=== PATIENT | female | born 1990 | race Asian ===

== ENCOUNTER 2024-01-02 10:10 | Outpatient (AMB) | payer OTHER, SELFPAY ==
--- NOTE | 2024-01-02 10:25 | A.OFFPC_ITS ---
Vital Signs 01/02/24 10:30 Height 5 ft 2 in Weight 122 lb BMI 22.3 BP 120/72 Blood Pressure Location Lt brachial Position Sitting Pulse 75 Pulse Source Pulse Oximeter Pulse Oximetry (%) 100 Oxygen Delivery Method Room Air Intake Visit Reasons: New patient-Requesting physical Parimutuel Ticket Seller Required: No Combat Systems Engineer: Present Accompanied by: Spouse Allergies No Known Allergies Allergy (Verified 01/02/24 11:06) Medication List - Last Reconciled 01/02/24 by Blas Leger MD cabergoline 0.5 mg PO 2XW Tobacco use date assessed: 01/02/24 Dental Screening Dental Screen Date: 01/02/24 Did you have a dental visit in the last 12 months?: No Did you have a dental problem in the last 6 months where you did not have access to dental care?: No Was dental information given to patient?: Patient has dentist HPI New patient-Requesting physical HPI Details Patient comes in today for her annual physical examination and to establish care - is a new patient to the practice States that she feels okay She denies any headaches or dizziness Denies any chest pains, no SOB No nausea/vomiting, no abdominal pain No change in bowel habits noted She denies any acute urinary symptoms Relates that she has a Hx of hyperprolactinemia and recalls having a brain MRI done in [place] recently that came out normal [facility] Medical History (Updated 05/27/24 @ 02:47 by Blas Leger MD) Hyperprolactinemia Surgical History (Updated 01/02/24 @ 11:09 by Blas Leger MD) No pertinent past surgical history Social History Housing: House Patient Tobacco Use Status: Never used Tobacco service: No Current occupational status: employed Cognitive needs: No Hearing needs: No Vision needs: No Questionnaire PHQ-9 Over the last 2 weeks, how often have you been bothered by any of the following problems? 1. Little interest or pleasure in doing things: not at all 2. Feeling down, depressed, or hopeless: not at all 3. Trouble falling or staying asleep, or sleeping too much: not at all 4. Feeling tired or having little energy: not at all 5. Poor appetite or overeating: not at all 6. Feeling bad about yourself - or that you are a failure or have let yourself or your family down: not at all 7. Trouble concentrating on things, such as reading the newspaper or watching television: not at all 8. Moving or speaking so slowly that other people could have noticed. Or the opposite - being so fidgety or restless that you have been moving around a lot more than usual: not at all 9. Thoughts that you would be better off or of hurting yourself in some way: not at all Total score: 0 Depression Screening Interpretation: Negative Depression Screening Done: Yes 19191 - PHQ-9 Billing: Yes Source: Developed by Drs. Dwaine Crews, Kelly Barker, Jorge Rogers and colleagues, with an educational torrey from [employer]. Thrive Questionnaire Date Thrive assessed: 01/02/24 I am a: Patient What is your living situation today?: I have a steady place to live Within the past 12 months, did the food you bought not last and you didn't have the money to get more?: Never true Within the past 12 months, did you worry whether your food would run out before you got money to buy more?: Never true Do you have trouble paying for medicines?: No Do you have trouble getting transportation to medical appointments?: No Do you have trouble paying your heating and electricity bill?: No Do you have trouble taking care of your child, family member or friend?: No Do you have trouble with day-to-day activities such as bathing, preparing meals, shopping, managing finances, etc.?: No Are you currently unemployed and looking for a job?: No Are you interested in more education?: No Please select the resources that you would like help with: None Currently or been in a relationship where the following occur: no concerns reported THRIVE Score: 0 AUDIT C Alcohol Use Questionnaire (AUDIT-C) 1. How often do you have a drink containing alcohol?: Never 3. How often do you have six or more drinks on one occasion?: Never Total Score: 0 Score Reviewed/Action Taken: Yes NATHALIA-7 AMB Questionnaire NATHALIA-7 Date NATHALIA - 7 assessed: 01/02/24 Feeling nervous, anxious, or on edge: 0 = Not at all Not being able to stop or control worryin = Not at all Worrying too much about different things: 0 = Not at all Trouble relaxin = Not at all Being so restless that it is hard to sit still: 0 = Not at all Becoming easily annoyed or irritable: 0 = Not at all Feeling afraid as if something awful might happen: 0 = Not at all Total NATHALIA-7 score (0-4 normal; 5-9 mild; 10-14 moderate; 15-21 severe): 0 Source: Developed by Drs. Dwaine Crews, Kelly Barker, Jorge Rogers and colleagues, with an educational torrey from [employer]. Review of Systems Const Denies chills, Denies fatigue, Denies fever(s), Denies headache(s) and Denies malaise Eyes Denies blurry vision, Denies change in vision, Denies irritation and Denies itchy eyes ENT Denies dysphagia, Denies dizziness, Denies otalgia, Denies headache(s), Denies nasal congestion, Denies neck pain, Denies odynophagia, Denies sinus pain and Denies sore throat Card Denies chest pain, Denies rapid heart rate, Denies irregular heart rhythm, Denies palpitations and Denies dyspnea Resp Denies chest congestion, Denies cough, Denies dyspnea and Denies wheezing GI Denies abdominal pain, Denies bloating, Denies constipation, Denies dysphagia, Denies heartburn, Denies diarrhea, Denies nausea, Denies odynophagia and Denies vomiting Denies hematuria, Denies urinary frequency, Denies dysuria, Denies urinary incontinence and Denies urinary urgency Musc Denies back pain, Denies arthralgias, Denies joint swelling, Denies muscle weakness and Denies neck pain Skin/Breast Denies breast pain, Denies breast mass, Denies change in pigmentation, Denies lesions, Denies rash and Denies unusual bruising Neuro Denies dizziness, Denies headache(s) and Denies paresthesias Psych Denies anxiety and Denies depression Endo Denies fatigue and Denies palpitations Catracho/Lymph Denies easy bruising Aller/Immun Denies itchy eyes and Denies wheezing Physical exam (Primary Care) Vital Signs: Last Vital Signs Pulse 75 01/02/24 10:30 BP 120/72 01/02/24 10:30 Pulse Ox 100 04/23/24 10:30 Oxygen Delivery Method Room Air 01/02/24 10:30 BMI result Body Mass Index 22.3 Tobacco/Smoking Status: Tobacco use Status Tobacco use date assessed 01/02/24 01/02/24 10:26 Patient Tobacco Use Status Never used Tobacco 01/02/24 10:33 PHQ-9: PHQ-9 Score PHQ-9: Total score 0 01/02/24 11:10 Depression Screening Interpretation: Negative Thrive Assessment: Date of Thrive Assessment Date Thrive assessed 01/02/24 01/02/24 10:26 Currently or been in a relationship where the following occur: no concerns reported Const General: no acute distress, alert and awake Orientation/consciousness: patient oriented x3 HENMT Head: Yes normocephalic and Yes atraumatic Ears: external ears normal, TM's normal bilaterally and EAC's normal General nose exam: No nasal discharge present Face and sinus: Yes normal facial exam and Yes sinuses nontender Teeth and gingiva: dentition normal Throat: Yes posterior oropharynx normal and Yes tonsils normal (no TP congestion) Eyes Eyelids: Yes eyelids normal Conjunctivae: conjunctivae normal Pupils: Equal, round and reactive pupils present EOM: EOMs intact bilaterally Neck Neck: Yes no lymphadenopathy and Yes supple Thyroid: Thyroid normal Resp Auscultation: clear to auscultation bilaterally, no rales and no wheezes Cardio Rate: regular rate Rhythm: regular rhythm Heart sounds: no murmurs GI Palpation (GI): Soft to palpation, nontender and No hepatosplenomegaly present Auscultation: normal bowel sounds General: Yes no CVA tenderness Back/Spine/Pelvis Back: no CVA tenderness Thoracic/Lumbar Spine: thoracic and lumbar spine normal to inspection Skin Lesions: no lesions Rashes: no rashes Neuro General: patient oriented x3, moves all extremities, no focal motor deficits and CN's II-XI intact bilaterally Cranial nerves: Yes Equal, round and reactive pupils present Cognition (Neuro): normal cognition Gait exam (Neuro): Normal gait present Extrem General: Yes no clubbing, cyanosis or edema Assessment and Plan Assessment & Plan (1) Annual physical exam: Code(s): Z00.00 - Encounter for general adult medical examination without abnormal findings Plan: Check labs - have advised patient that we will reach out to her if any of her routine labs come back with abnormal or unexpected results She has been going to [place] for IVF Tx and she is likely also seeing gynecology there for her routine screenings and exam (2) Hyperprolactinemia: Code(s): E22.1 - Hyperprolactinemia Plan: This was apparently noticed when she was worked up in [place] as she has been going there for IVF Tx States that her work ups have all been reportedly negative so far Relates that she had a brain MRI done in [place] recently that came out normal Plan To return in 1 year for her next annual physical examination Orders: Orders Complete Blood Count Auto Diff 01/02/24 D64.9 - Anemia, unspecified, Z00.00 - Encounter for general adult medical examination without abnormal findings TSH reflex Free T4 01/02/24 E78.00 - Pure hypercholesterolemia, unspecified, Z00.00 - Encounter for general adult medical examination without abnormal findings Comprehensive [place]. Panel Fast 01/02/24 E78.00 - Pure hypercholesterolemia, unspecified, Z00.00 - Encounter for general adult medical examination without abnormal findings Lipid Panel 01/02/24 E78.00 - Pure hypercholesterolemia, unspecified, Z00.00 - Encounter for general adult medical examination without abnormal findings UA CC w/rflx Micro + Cult 01/02/24 R30.0 - Dysuria, Z00.00 - Encounter for general adult medical examination without abnormal findings Vitamin D 25-OH Total 01/02/24 E55.9 - Vitamin D deficiency, unspecified, Z00.00 - Encounter for general adult medical examination without abnormal findings Coding Level of Care Code New Pt Prev Care 18-39yr([id number] Diagnoses Annual physical exam Z00.00 Hyperprolactinemia E22.1
[2024-01-02 10:30] VITALS: BP 120/72; PULSE 75; O2SAT 100; BMI 22.3
== END 2024-01-02 11:20 | disposition home or self-care (01) ==
PROVIDERS: PCP Internal Medicine; Visit Provider Internal Medicine
DX: Z00.00 Encounter for general adult medical examination without abnormal findings (principal); E22.1 Hyperprolactinemia
CPT/HCPCS: 99499

== ENCOUNTER 2024-01-02 11:30 | Outpatient (REF) | payer OTHER, SELFPAY ==
[2024-01-02 11:59] LABS: MANUAL DIFF FLAG NO
[2024-01-02 12:45] LABS: Basophils Absolute Auto 0.1 X10*3/uL (0.0-0.2); Basophils Percent Auto 0.8 % (0-2); Eosinophils Absolute Auto 0.1 X10*3/uL (0.0-0.4); Eosinophils Percent Auto 1.3 % (0-4); Hematocrit 41.3 % (37.0-47.0); Imm Gran Abs Auto 0.02 X10*3/uL (0.00-0.03); Imm Gran Pct Auto 0.3 % (0.0-0.4); Lymphocytes Absolute Auto 1.9 X10*3/uL (1.2-4.9); Lymphocytes Percent Auto 31.6 % (20-40); Mean Corpuscular HGB Conc 33.9 g/dl (31.0-35.0); Mean Corpuscular Volume 91.4 fL (80.0-98.0); Monocytes Absolute Auto 0.3 X10*3/uL (0.1-1.2); Monocytes Percent Auto 5.3 % (2-11); Neutrophils Absolute Auto 3.7 x10*3/uL (2.0-8.3); Neutrophils Percent Auto 60.7 % (45-73); Platelet Count 211 X10*3/uL (160-400); Red Blood Count 4.52 X10*6/uL (4.20-5.50); Red Cell Distribution Width 12.2 % (11.0-16.0); White Blood Count 6.1 X10*3/uL (4.8-10.8)
[2024-01-02 13:13] LABS: Alanine Aminotransferase 48 U/L (0-31); Albumin Level 4.5 g/dL (3.5-5.0); Alkaline Phosphatase 44 U/L (39-117); Anion Gap 11 (12-20); Aspartate Amino Transferase 29 U/L (5-31); Bilirubin Total 0.3 mg/dL (0.0-1.0); Blood Urea Nitrogen 16 mg/dL (9-16); Calcium 9.8 mg/dL (8.4-10.2); Carbon Dioxide 29 mmol/L (22-29); Chloride 105 mmol/L (96-108); Cholesterol 245 mg/dL (<200); Estimated Glomerular Filt Rate > 60; Glucose Fasting 95 mg/dL (60-99); HDL Cholesterol 67 mg/dL (>40); LDL Cholesterol Calculated 162 mg/dL (<100); Potassium 3.9 mmol/L (3.3-5.1); Sodium 141 mmol/L (135-145); Triglycerides 81 mg/dL (<150)
[2024-01-02 13:32] LABS: TSH reflex Free T4 1.65 uIU/mL (0.32-4.0); Vitamin D 25-OH Total 28.2 ng/mL (>30)
[2024-01-02 13:49] LABS: Appearance Urine Clear; Color Urine Yellow; Glucose Urine UA Negative (Negative); Leukocyte Esterase Urine Negative (Negative); Nitrite Urine Negative (Negative); Specific Gravity - Urine 1.025 (1.005-1.025); Urine Blood Negative (Negative); Urine Ketones Negative (Negative); Urine Protein Negative (Neg-Trace)
== END 2024-01-02 11:31 | disposition home or self-care (01) ==
LOC: HO.LAB 11:30
PROVIDERS: PCP Internal Medicine; Visit Provider Internal Medicine
DX: Z00.00 Encounter for general adult medical examination without abnormal findings (principal); D64.9 Anemia, unspecified; E78.00 Pure hypercholesterolemia, unspecified; R30.0 Dysuria; E55.9 Vitamin D deficiency, unspecified
CPT/HCPCS: 36415; 80053; 80061; 81003; 82306; 84443; 85025

== ENCOUNTER 2024-06-14 09:48 | Outpatient (REF) | payer OTHER, SELFPAY ==
[2024-06-14 13:18] LABS: Alanine Aminotransferase 32 U/L (0-31); Albumin Level 4.2 g/dL (3.5-5.0); Alkaline Phosphatase 43 U/L (39-117); Anion Gap 12 (12-20); Aspartate Amino Transferase 20 U/L (5-31); Bilirubin Total 0.2 mg/dL (0.0-1.0); Blood Urea Nitrogen 13 mg/dL (9-16); Calcium 9.2 mg/dL (8.4-10.2); Carbon Dioxide 23 mmol/L (22-29); Chloride 108 mmol/L (96-108); Estimated Glomerular Filt Rate > 60; Glucose Random 94 mg/dL (60-115); Potassium 3.8 mmol/L (3.3-5.1); Sodium 139 mmol/L (135-145); Total Protein 7.6 g/dL (6.5-8.0)
== END 2024-06-14 09:49 | disposition home or self-care (01) ==
LOC: HO.LAB 09:48
PROVIDERS: PCP Internal Medicine
DX: Z00.00 Encounter for general adult medical examination without abnormal findings (principal)
CPT/HCPCS: 36415; 80053

== ENCOUNTER 2025-06-03 10:01 | Outpatient (AMB) | payer OTHER, SELFPAY ==
[2025-06-03 10:17] VITALS: BP 110/60; PULSE 106; O2SAT 99; BMI 21.5
--- NOTE | 2025-06-03 10:17 | A.OFFPC_ITS ---
Vital Signs 06/03/25 10:17 Height 5 ft 2 in Weight 117 lb 8 oz BMI 21.5 BP 110/60 Blood Pressure Location Lt brachial Position Sitting Pulse 106 H Pulse Source Pulse Oximeter Pulse Oximetry (%) 99 Oxygen Delivery Method Room Air Intake Visit Reasons: Annual Exam Manager Case Management Required: No Accompanied by: Self / Same As Patient Allergies No Known Allergies Allergy (Verified 06/03/25 10:54) Medication List - Last Reconciled 06/03/25 by Blas Leger MD cabergoline 0.5 mg PO 2XW Tobacco use date assessed: 06/03/25 Dental Screening Dental Screen Date: 06/03/25 Did you have a dental visit in the last 12 months?: Yes Did you have a dental problem in the last 6 months where you did not have access to dental care?: No Was dental information given to patient?: Patient has dentist HPI Annual Exam HPI Details Patient comes in today for her follow up visit - she was initially scheduled for her annual exam but in light of her recent developments (noted below), her appointment today is changed to a follow up / HDF visit She was shockingly diagnosed with colon cancer earlier this month when she went to the ER back on 05/19/2025 for increased abdominal pain for the past 4 days She also reports experiencing diarrhea/loose stools and passage of bright red blood per rectum x 1 She also relates (+) ongoing intermittent lower back pain for the past one month, with on and off pain over her right shoulder area and right subscapular area as well She recalls eating some oysters prior to the onset of her abdominal symptoms so she initially thought that the oysters were the likely cause of her abdominal pain and diarrhea She also recalls experiencing exertional dyspnea over the past month, with some fatigue and weight loss, occasional nausea and some anorexia at times Abdominal and pelvic CT done at the ER at the time revealed several dilated small bowel loops at the hepatic flexure with associated mass extending outside the wall of the colon, several abnormal/necrotic appearing mesenteric lymph nodes as well as retroperitoneal and portocaval lymphadenopathy and 2 low attenuation lesions in the liver She was then admitted for further work up of her concerning findings - likely metastatic colon cancer She initially underwent a colonoscopy 4 the ascending colon stricture and partial large bowel obstruction The mass was biopsied and a temporary colonic stent was placed Her pathology came back positive for invasive adenocarcinoma, moderately differentiated, ulcerated She subsequently underwent surgical resection 4 days later on 05/23/2025 - proced ure was initially a laparoscopic colectomy that was converted to an open right colectomy with ileocolic anastomosis Her final diagnosis came back as invasive moderately to poorly differentiated colon carcinoma (pT3 pN2 ap M1a) She is currently still undergoing outpatient workups and interventional radiology has recommended outpatient port placement, which is pending and once all of these are addressed, she will likely start chemotherapy sometime in the next couple of weeks Patient states that she is currently still feeling fatigued and is still trying to get over the shock of her recent diagnosis She denies any headaches or dizziness Denies any chest pains, no shortness of breath No nausea/vomiting - states that she tries to eat whenever she can but her appetite is still not great States that her abdomen is still sore from her recent surgery although her surgical scars appear to be healing well - the sutures/aron are still in place and intact States that she is currently moving her bowels regularly but her stools are mostly soft and occasionally loose She denies any acute urinary symptoms She had her yearly gynecology exam and Pap smear done earlier this year [facility] Medical History (Updated 06/04/25 @ 06:18 by Blas Leger MD) Vitamin D deficiency Pure hypercholesterolemia Adenocarcinoma of colon Chronic endometritis Hyperprolactinemia Surgical History (Updated 06/04/25 @ 06:09 by Blas Leger MD) S/P right colectomy History of colonoscopy No pertinent past surgical history Family History (Updated 06/04/25 @ 06:10 by Blas Leger MD) Father Stomach cancer Social History Housing: House Patient Tobacco Use Status: Never used Tobacco e-Cigarette/Vaping Use: Never Used Second Hand Smoke Exposure: No service: No Current occupational status: employed Cognitive needs: No Hearing needs: No Vision needs: No Questionnaire PHQ-9 Over the last 2 weeks, how often have you been bothered by any of the following problems? 1. Little interest or pleasure in doing things: several days 2. Feeling down, depressed, or hopeless: several days 3. Trouble falling or staying asleep, or sleeping too much: not at all 4. Feeling tired or having little energy: several days 5. Poor appetite or overeating: several days 6. Feeling bad about yourself - or that you are a failure or have let yourself or your family down: several days 7. Trouble concentrating on things, such as reading the newspaper or watching television: not at all 8. Moving or speaking so slowly that other people could have noticed. Or the opposite - being so fidgety or restless that you have been moving around a lot more than usual: several days 9. Thoughts that you would be better off or of hurting yourself in some way: nearly every day Total score: 9 Depression Screening Interpretation: Positive Depression Screening Follow-up: Follow-up Visit Requested Depression Screening Done: Yes 32638 - PHQ-9 Billing: Yes Source: Developed by Drs. Dwaine Crews, Kelly Barker, Jorge Rogers and colleagues, with an educational torrey from [employer]. Thrive Questionnaire Date Thrive assessed: 06/03/25 I am a: Patient What is your living situation today?: I have a steady place to live Within the past 12 months, did the food you bought not last and you didn't have the money to get more?: I choose not to answer this question Within the past 12 months, did you worry whether your food would run out before you got money to buy more?: I choose not to answer this question Do you have trouble paying for medicines?: I choose not to answer this question Do you have trouble getting transportation to medical appointments?: I choose not to answer this question Do you have trouble paying your heating and electricity bill?: I choose not to answer this question Do you have trouble taking care of your child, family member or friend?: No Do you have trouble with day-to-day activities such as bathing, preparing meals, shopping, managing finances, etc.?: I choose not to answer this question Are you currently unemployed and looking for a job?: No Are you interested in more education?: I choose not to answer this question Please select the resources that you would like help with: None Currently or been in a relationship where the following occur: I choose not to answer THRIVE Score: 0 AUDIT C Alcohol Use Questionnaire (AUDIT-C) 1. How often do you have a drink containing alcohol?: Never 3. How often do you have six or more drinks on one occasion?: Never Total Score: 0 Score Reviewed/Action Taken: Yes NATHALIA-7 AMB Questionnaire NATHALIA-7 Date NATHALIA - 7 assessed: 01/02/24 Feeling nervous, anxious, or on edge: 1 = Several days Not being able to stop or control worryin = Several days Worrying too much about different things: 1 = Several days Trouble relaxin = Several days Being so restless that it is hard to sit still: 1 = Several days Becoming easily annoyed or irritable: 1 = Several days Feeling afraid as if something awful might happen: 1 = Several days Total NATHALIA-7 score (0-4 normal; 5-9 mild; 10-14 moderate; 15-21 severe): 7 Source: Developed by Drs. Dwaine Crews, Kelly Barker, Jorge Rogers and colleagues, with an educational torrey from [employer]. Review of Systems Const Denies chills, Reports fatigue, Denies fever(s), Denies headache(s) and Reports poor appetite ENT Denies dysphagia, Denies dizziness, Denies otalgia, Denies headache(s), Denies neck pain, Denies odynophagia and Denies sore throat Card Denies chest pain, Denies palpitations and Denies dyspnea Resp Denies chest congestion, Denies cough and Denies dyspnea GI Reports abdominal pain (abdomen still feels sore from her recent surgery), Denies constipation, Denies dysphagia, Denies heartburn, Reports loose stools, Denies nausea, Denies odynophagia and Denies vomiting Denies difficulty voiding, Denies nocturia, Denies dysuria and Denies urinary urgency Musc Denies back pain and Denies neck pain Skin/Breast Denies rash Neuro Denies dizziness and Denies headache(s) Endo Reports fatigue and Denies palpitations Physical exam (Primary Care) Vital Signs: Last Vital Signs Pulse 106 H 06/03/25 10:17 BP 110/60 06/03/25 10:17 Pulse Ox 99 06/03/25 10:17 Oxygen Delivery Method Room Air 06/03/25 10:17 BMI result Body Mass Index 21.5 Tobacco/Smoking Status: Tobacco use Status Tobacco use date assessed 06/03/25 06/03/25 10:21 Patient Tobacco Use Status Never used Tobacco 06/03/25 10:18 e-Cigarette/Vaping Use Never Used 06/03/25 10:29 PHQ-9: PHQ-9 Score PHQ-9: Total score 9 06/03/25 12:58 Depression Screening Interpretation: Positive Depression Screening Follow-up: Follow-up Visit Requested Thrive Assessment: Date of Thrive Assessment Date Thrive assessed 06/01/25 06/03/25 10:18 Currently or been in a relationship where the following occur: I choose not to answer Const General: no acute distress and alert HENMT Ears: TM's normal bilaterally and EAC's normal Throat: Yes posterior oropharynx normal and Yes tonsils normal (no TP congestion) Neck Neck: Yes no lymphadenopathy and Yes supple Thyroid: Thyroid normal Resp Auscultation: clear to auscultation bilaterally, no rales and no wheezes Cardio Rate: regular rate Rhythm: regular rhythm Heart sounds: no murmurs GI Other: (+) healing surgical scars, with aron/sutures in place Palpation (GI): Tenderness to palpation present (GI) (abdomen still feels sore, en on the R side, from recent surgery), no guarding and not rigid Auscultation: normal bowel sounds General: Yes no CVA tenderness Back/Spine/Pelvis Back: no CVA tenderness Thoracic/Lumbar Spine: No lumbar spinal tenderness Skin Rashes: no rashes Extrem General: Yes no clubbing, cyanosis or edema Coding Level of Care Code Est Pt Level 4 (12352) Diagnoses Adenocarcinoma of colon C18.9 Hyperprolactinemia E22.1 Pure hypercholesterolemia E78.00 Vitamin D deficiency E55.9 Chronic endometritis N71.1 Additional Codes PHQ-9 - 88660 - PHQ-9 Billing: Yes ([id number]) Assessment & Plan Assessment & Plan (1) Adenocarcinoma of colon: Comment: Invasive, moderately to poorly differentiated, colon adenocarcinoma (pT3 pN2 ap M1a) - diagnosed 05/2025 Code(s): C18.9 - Malignant neoplasm of colon, unspecified Category: Medical Plan: S/P palliative right colectomy a couple of weeks ago on 05/23/2025 She is currently undergoing further outpatient evaluation as well as port placement with interventional radiology and will be starting chemotherapy sometime in the next couple of weeks Follow up with oncology as scheduled (2) Hyperprolactinemia: Code(s): E22.1 - Hyperprolactinemia Category: Medical Plan: This was noticed when she was worked up in [place] when she was going there for IVF treatments States that her work ups have all been reportedly negative so far Relates that she had a brain MRI done in [place] last year that came out normal (3) Pure hypercholesterolemia: Code(s): E78.00 - Pure hypercholesterolemia, unspecified Category: Medical Plan: She was noted to have elevated total and LDL cholesterol levels on her labs done last year but she never had a chance to follow up with us since With her recent diagnosis of colon cancer, would hold off on addressing this or rechecking her cholesterol levels at this time (4) Vitamin D deficiency: Code(s): E55.9 - Vitamin D deficiency, unspecified Category: Medical Plan: Her Vitamin D level was also noted to be low on her labs done last year Will have her at least start taking some OTC Vitamin D3 2000 units QD (5) Chronic endometritis: Comment: 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
== END 2025-06-03 11:19 | disposition home or self-care (01) ==
LOC: HO.HMCH 10:02
PROVIDERS: PCP Internal Medicine; Visit Provider Internal Medicine
DX: C18.9 Malignant neoplasm of colon, unspecified (principal); E22.1 Hyperprolactinemia; E78.00 Pure hypercholesterolemia, unspecified; E55.9 Vitamin D deficiency, unspecified; N71.1 Chronic inflammatory disease of uterus

== ENCOUNTER → 2025-06-03 10:01 | Outpatient (BNVA) | payer OTHER, SELFPAY | PROVIDERS: PCP Internal Medicine; Visit Provider Internal Medicine | DX: Z00.00 Encounter for general adult medical examination without abnormal findings (principal); N71.1 Chronic inflammatory disease of uterus; C18.9 Malignant neoplasm of colon, unspecified; E22.1 Hyperprolactinemia; E78.00 Pure hypercholesterolemia, unspecified; E55.9 Vitamin D deficiency, unspecified | CPT/HCPCS: 96127 ==

== ENCOUNTER 2025-09-02 15:44 | Outpatient (AMB) | payer OTHER, SELFPAY ==
[2025-09-02 16:09] VITALS: BP 100/64; PULSE 101; O2SAT 97; BMI 20.3
--- NOTE | 2025-09-02 16:09 | A.OFFPC_ITS ---
Vital Signs 09/02/25 16:09 Height 5 ft 2 in Weight 111 lb BMI 20.3 BP 100/64 Blood Pressure Location Lt brachial Position Sitting Pulse 101 H Pulse Source Pulse Oximeter Pulse Oximetry (%) 97 Oxygen Delivery Method Room Air Intake Visit Reasons: Follow Up Ultrasound Specialist Required: No Accompanied by: Self / Same As Patient Allergies No Known Allergies Allergy (Verified 09/02/25 16:25) Medication List - Last Reconciled 09/07/25 by Blas Leger MD cholestyramine 4 grams PO BID clindamycin phosphate 1% 1 appl topical BID dexamethasone 4 mg PO DIRECTED encorafenib 300 mg PO DAILY hydrocortisone 2.5% 1 appl topical BID PRN lidocaine-prilocaine 2.5-2.5 % 1 appl topical .as needed loperamide 2 to 4 mg orally every 6 hours PRN; olanzapine 5 mg PO BEDTIME ondansetron 8 mg PO Q8H PRN prochlorperazine maleate (Compazine) 10 mg PO Q6H PRN Tobacco use date assessed: 09/02/25 Dental Screening Dental Screen Date: 09/02/25 Did you have a dental visit in the last 12 months?: Yes Did you have a dental problem in the last 6 months where you did not have access to dental care?: No Was dental information given to patient?: Patient has dentist HPI Follow Up HPI Details - The patient is a 34 year old female pr esenting for follow-up of metastatic colon cancer. - The patient is currently undergoing ch emotherapy with Erbitux and oxaliplatin with 5-FU every two weeks for her metastatic colon cancer, which has an unfavorable genetic analysis - she just received her second cycle of Tx last week on 08/27/2025 - She was recently hospitalized for one week due to a fever over 40 degrees Celsius. - During her hospitalization, a CT scan was performed after her first cycle of chemotherapy, which showed a slight reduction in the tumor. - She reports significant side effects f rom chemotherapy, including constant diarrhea and fatigue, which affect her ability to sleep and rest. - Symptoms are most severe during the fi rst week after treatment, with her ener gy improving in the second week. - Her recently started experienc ing some cough/cold symptoms so he has been trying to keep his distance from her as much as he can for now to keep her from getting sick due to her immunocompromised status - Patient states that she has received h er flu vaccine and all other recommended vaccines from her oncology team over the past few months [facility] Medical History Vitamin D deficiency Pure hypercholesterolemia Adenocarcinoma of colon Chronic endometritis Hyperprolactinemia Surgical History S/P right colectomy History of colonoscopy No pertinent past surgical history Family History Father Stomach cancer Social History Housing: House Patient Tobacco Use Status: Never used Tobacco e-Cigarette/Vaping Use: Never Used Second Hand Smoke Exposure: No service: No Current occupational status: employed Cognitive needs: No Hearing needs: No Vision needs: No Questionnaire PHQ-9 Over the last 2 weeks, how often have you been bothered by any of the following problems? 1. Little interest or pleasure in doing things: several days 2. Feeling down, depressed, or hopeless: several days 3. Trouble falling or staying asleep, or sleeping too much: not at all 4. Feeling tired or having little energy: several days 5. Poor appetite or overeating: several days 6. Feeling bad about yourself - or that you are a failure or have let yourself or your family down: several days 7. Trouble concentrating on things, such as reading the newspaper or watching television: not at all 8. Moving or speaking so slowly that other people could have noticed. Or the opposite - being so fidgety or restless that you have been moving around a lot more than usual: several days 9. Thoughts that you would be better off or of hurting yourself in some way: nearly every day Total score: 9 Depression Screening Interpretation: Positive Depression Screening Follow-up: In treatment and Follow-up Visit Requested Depression Screening Done: Yes 29184 - PHQ-9 Billing: Yes Source: Developed by Drs. Dwaine Crews, Kelly Barker, Jorge Rogers and colleagues, with an educational torrey from [employer]. Thrive Questionnaire Date Thrive assessed: 09/02/25 I am a: Patient What is your living situation today?: I have a steady place to live Within the past 12 months, did the food you bought not last and you didn't have the money to get more?: I choose not to answer this question Within the past 12 months, did you worry whether your food would run out before you got money to buy more?: I choose not to answer this question Do you have trouble paying for medicines?: I choose not to answer this question Do you have trouble getting transportation to medical appointments?: I choose not to answer this question Do you have trouble paying your heating and electricity bill?: I choose not to answer this question Do you have trouble taking care of your child, family member or friend?: No Do you have trouble with day-to-day activities such as bathing, preparing meals, shopping, managing finances, etc.?: I choose not to answer this question Are you currently unemployed and looking for a job?: No Are you interested in more education?: I choose not to answer this question Please select the resources that you would like help with: None Currently or been in a relationship where the following occur: I choose not to answer THRIVE Score: 0 AUDIT C Alcohol Use Questionnaire (AUDIT-C) 1. How often do you have a drink containing alcohol?: Never 3. How often do you have six or more drinks on one occasion?: Never Total Score: 0 Score Reviewed/Action Taken: Yes NATHALIA-7 AMB Questionnaire NATHALIA-7 Date NATHALIA - 7 assessed: 09/02/25 Feeling nervous, anxious, or on edge: 1 = Several days Not being able to stop or control worryin = Several days Worrying too much about different things: 1 = Several days Trouble relaxin = Several days Being so restless that it is hard to sit still: 1 = Several days Becoming easily annoyed or irritable: 1 = Several days Feeling afraid as if something awful might happen: 1 = Several days Total NATHALIA-7 score (0-4 normal; 5-9 mild; 10-14 moderate; 15-21 severe): 7 Source: Developed by Drs. Dwaine Crews, Kelly Barker, Jorge Rogers and colleagues, with an educational torrey from [employer]. Review of Systems Const Denies chills, Reports fatigue, Denies fever(s), Denies headache(s), Reports poor appetite and Reports weight loss ENT Denies dysphagia, Denies dizziness, Denies otalgia, Denies headache(s), Denies neck pain, Denies odynophagia and Denies sore throat Card Denies chest pain, Denies palpitations and Denies dyspnea Resp Denies chest congestion, Denies cough and Denies dyspnea GI Reports abdominal pain (on and off), Reports bloating (at times), Denies constipation, Denies dysphagia, Denies heartburn, Reports loose stools (especially following her chemotherapy), Denies nausea, Denies odynophagia and Denies vomiting Denies difficulty voiding, Denies nocturia, Denies dysuria and Denies urinary urgency Musc Denies back pain and Denies neck pain Skin/Breast Denies rash Neuro Denies dizziness and Denies headache(s) Endo Reports fatigue and Denies palpitations Physical exam (Primary Care) Vital Signs: Last Vital Signs Pulse 101 H 09/02/25 16:09 BP 100/64 09/02/25 16:09 Pulse Ox 97 09/02/25 16:09 Oxygen Delivery Method Room Air 09/02/25 16:09 BMI result Body Mass Index 20.3 Tobacco/Smoking Status: Tobacco use Status Tobacco use date assessed 09/02/25 09/02/25 16:17 Patient Tobacco Use Status Never used Tobacco 09/02/25 16:17 e-Cigarette/Vaping Use Never Used 09/02/25 16:17 PHQ-9: PHQ-9 Score PHQ-9: Total score 9 09/02/25 16:39 Depression Screening Interpretation: Positive Depression Screening Follow-up: In treatment and Follow-up Visit Requested Thrive Assessment: Date of Thrive Assessment Date Thrive assessed 09/02/25 09/02/25 16:17 Currently or been in a relationship where the following occur: I choose not to answer Const General: no acute distress and alert HENMT Ears: TM's normal bilaterally and EAC's normal Throat: Yes posterior oropharynx normal and Yes tonsils normal (no TP congestion) Neck Neck: Yes no lymphadenopathy and Yes supple Thyroid: Thyroid normal Resp Auscultation: clear to auscultation bilaterally, no rales and no wheezes Cardio Rate: regular rate Rhythm: regular rhythm Heart sounds: no murmurs GI Palpation (GI): Soft to palpation and nontender Auscultation: normal bowel sounds General: Yes no CVA tenderness Back/Spine/Pelvis Back: no CVA tenderness Thoracic/Lumbar Spine: No lumbar spinal tenderness Skin Rashes: no rashes Extrem General: Yes no clubbing, cyanosis or edema Coding Level of Care Code Est Pt Level 4 (47369) Diagnoses Adenocarcinoma of colon C18.9 Pure hypercholesterolemia E78.00 Vitamin D deficiency E55.9 Chronic endometritis N71.1 Hyperprolactinemia E22.1 Additional Codes PHQ-9 - 06338 - PHQ-9 Billing: Yes ([id number]) Assessment & Plan Assessment & Plan (1) Adenocarcinoma of colon: Comment: Invasive, moderately to poorly differentiated, colon adenocarcinoma (pT3 pN2 ap M1a; 01/20 LN) with metastasis to retroperitoneal LN - diagnosed 05/2025 Code(s): C18.9 - Malignant neoplasm of colon, unspecified Category: Medical Plan: S/P palliative right colectomy back on 05/23/2025 She is currently on systemic chemotherapy with 5-FU/Encorafenib (Braftovi)/Cetuximab per the [facility] TRIAL and seems to be tolerating her Tx so far Follow up with oncology as scheduled (2) Pure hypercholesterolemia: Code(s): E78.00 - Pure hypercholesterolemia, unspecified Category: Medical Plan: She was noted to have elevated total and LDL cholesterol levels on her labs done last year but she never had a chance to follow up with us since With her recent diagnosis of colon cancer for which she is currently undergoing treatment for, will hold off on addressing this or rechecking her cholesterol levels at this time (3) Vitamin D deficiency: Code(s): E55.9 - Vitamin D deficiency, unspecified Category: Medical Plan: Continue OTC Vitamin D3 2000 units QD (4) Chronic endometritis: Comment: 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 Code(s): N71.1 - Chronic inflammatory disease of uterus Category: Medical Plan: 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
--- OUTSIDE RECORDS SUMMARY | 2025-09-02 16:46 | XMS_ITS | Encounter Summary ---
Author Organization [facility] Address [address] [place] [address] [place] [id number] Phone Care Team Providers Care [employer] [address] Name Role Phone Blas Leger MD Primary Care Provider [phone] Hamzah Ragland MD Unavailable Chase Herron MD, PhD Unavailable [phone] Encounter Details Date Type Department Care Team (Late st Contact Info) Description 08/25/2025 Orders Only [facility] [address] [place] [address], 10[address] [place] [address] Chase Herron MD, PhD [address] [place] [address] [address] [email or web address] Malignant neoplasm of colon, unspecified part of colon Social History Tobacco Use Types Packs/Day Years Used Date Smoking Tobacco: Never Passive Smoke Exposure: Never Smokeless Tobacco: Never Alcohol Use Standard Drinks/Week Comments Not Currently 0 (1 standard drink = 0.6 oz pure alcohol) No history of heavy alcohol use. Prior social. Child or Family Care Answer Date Record ed Do you have problems with on e of the following making it difficult for you to work, study, or receive health care? I choose not to answer 08/16/2025 Education Answer Date Recorded Are you interested in help w ith more adult education (for example, completing high school, GED, job training, learning the Thai language, technical skills, or developing parenting skills)? No 08/16/2025 Are you concerned about learning? Not on file 08/16/2025 No 08/16/2025 Yes 08/16/2025 Food Answer Date Recorded Within the past 6 months we worried whether our food would run out before we got money to buy more. Never True 08/16/2025 Within the past 6 months the food we bought just didn't last and we didn't have enough money to get more. Never True Residential Stability Answer Date Recor ded What is your housing situation today? I have al sing 08/16/2025 How many times have you move d in the past 12 months? Zero (I did not move) 08/16/2025 Paying for Meds Answer Date Recorded Do you have trouble paying for medicines? No 08/16/2025 Paying Utility Bills Answer Date Record ed Do you have trouble paying your heating or elect ricity bill? No 08/16/2025 Transportation Answer Date Recorded Has the lack of transportati on kept you from medical appointments or from getting medications? No 08/16/2025 Unemployment Answer Date Recorded Are you currently unemployed or working on a part-time or temporary basis, and looking for work? Yes 08/16/2025 Digital Access Answer Date Recorded No 08/12/2025 No 08/12/2025 Reliable internet access at home? Not on file 08/12/2025 Device with a working camera? Not on file Comments Unknown Sex and Gender Information Value Date Recorded Sex Assigned at Female 08/12/2025 10:31 AM EST Legal Sex Female 10:29 AM EST Gender Identity Female 08/12/2025 10:31 AM EST Sexual Orientation Straight 08/12/2025 10 :31 AM EST documented as of this encounter Plan of Treatment Not on file documented as of this encounter Procedures Procedure Name Priority Date/Time Associated Diagnosis Comments OUTSIDE PATHOLOGY REVIEW/CONSULT Routine 08/25/2025 12:03 PM EST Malignant neoplasm of colon, unspecified part of colon TISSUE EXAM Routine 05/19/2025 12:00 AM EDT Malignant neoplasm of colon, unspecified part of colon documented in this encounter Results * Outside Pathology Review/Consult (08/25/2025 12:03 PM EST) Consult Auto Resulting Yes 08/25/2025 12:07 PM EST [facility] Consult 08/25/2025 12:0 3 PM EST 08/25/2025 12:04 PM EST us Chase Herron MD, PhD LAB PATHOLOGY ORDERAB LES Final Result [facility] [address] [place] [address] * Tissue Exam (05/19/2025 12:00 AM EDT) Final Pathologic Diagnosis Consult materials received from [place], [place]: COLON; HEPATIC FLEXURE MASS BIOPSIES (; 05/19/2025): Invasive adenocarcinoma, moderately to poorly differentiated. Immunohistochemistry performed at the outside institution and reviewed at [facility] demonstrates the following staining profile in lesional cells: Positive: CDX2, CK20 Negative: CK7 Note: Immunohistochemistry for mismatch repair proteins MLH1, MSH2, MSH6, and PMS2 performed at the outside hospital and reviewed at [facility] reveals intact nuclear staining in tumor cells. In rare tumors, there is an underlying hereditary genetic defect despite intact nuclear expression in tumor cells. Further testing for microsatellite instability is available in the [facility] if the clinical suspicion for Carbajal syndrome remains high despite the intact mismatch repair protein expression. By report, molecular testing ([facility] [employer]) identified BRAF V600E and TP53 alterations. KRAS and NRAS alterations were not detected. RIGHT COLON WITH TERMNAL ILEUM; RIGHT COLECTOMY (; 05/23/2025): Invasive adenocarcinoma. See synoptic report. 11:26 AM EST [facility] at 1126 EST Additional Pathologists Torie Arias MD - Resident Pathologist 11:26 AM EST [facility] CAP Synoptic Report COLON AND RECTUM: Resection COLON AND RECTUM: RESECTION - All Specimens AJCC 8 - Protocol posted: 02/26/2025 SPECIMEN Procedure: Right hemicolectomy TUMOR Tumor Site: Hepatic flexure Histologic Type: Adenocarcinoma Histologic Grade: G3, poorly differentiated Tumor Size: Greatest dimension (Centimeters): 5.0 cm Tumor Extent: Invades through muscularis propria into the pericolic or perirectal tissue Macroscopic Tumor Perforation: Not identified Lymphatic and / or Vascular Invasion: Small vessel Lymphatic and / or Vascular Invasion: Large vessel (venous), extramural Perineural Invasion: Not identified Treatment Effect: No known presurgical therapy MARGINS Margin Status for Invasive Carcinoma: All margins negative for invasive carcinoma Closest Margin(s) to Invasive Carcinoma: Mesenteric Distance from Invasive Carcinoma to Closest Margin: 0.4 cm Margin Status for Non-Invasive Tumor: Not applicable REGIONAL LYMPH NODES Regional Lymph Node Status: : Tumor present in regional lymph node(s) Number of Lymph Nodes with Tumor: 5 Number of Lymph Nodes Examined: 12 Tumor Deposits: Present Number of Tumor Deposits: 5 DISTANT METASTASIS Distant Site(s) Involved: Non-regional lymph node(s): Lymph node labeled Part 1: Retroperitoneal lymph node is positive for metastatic carcinoma. pTNM CLASSIFICATION (AJCC 8th Edition) Reporting of pT, pN, and (when applicable) pM categories is based on information available to the pathologist at the time the report is issued. As per the AJCC (Chapter 1, 8th Ed.) it is the managing physician's responsibility to establish the final pathologic stage based upon all pertinent information, including but potentially not limited to this pathology report. pT Category: pT3 pN Category: pN2a pM Category: pM1a Comment(s): Only 3 selected pharmaceutical sales representative slides reviewed to confirm the presence of adenocarcinoma, depth of invasion, and presence of 2 lymph nodes metastases (including an involved retroperitoneal lymph node). The remainder is by report. 11:26 AM EST [facility] Clinical History Colon Cancer 11:26 AM EST [facility] Materials Received A. Colon; HEPATIC FLEXURE MASS BIOPSIES - 05/19/2025 Blocks: 0 Stained Slides: 9 Number of Unstained Slides: 0 Stained Slides Received: A1-1 09/11 A1-2 09/12 A1-3 MSH2 A1-4 MSH6 A1-5 CDX2 A1-6 CK20 A1-7 CK7 A1-8 MLH1 A1-9 PMS2 B. Colon; RIGHT COLON WITH TERMNAL ILEUM RIGHT COLECTOMY - 05/23/2025 Blocks: 0 Stained Slides: 3 Number of Unstained Slides: 0 Tobacco Warehouse Manager selected slides: B1-1 09/11 B1-2 10/16 B1-3 10/28 11:26 AM EST [facility] Result Priority Level Routine 11:26 AM EST [facility] Disclaimer By their signature above, the pathologist listed as making the Final Diagnosis certifies that they have personally reviewed the case and confirmed the diagnosis. All slides and stains were of sufficient quality to establish the diagnosis, unless otherwise stated. Due to loss of elastic tension and/or tissue shrinkage in formalin, the clinical sizes of tissue specimens may be larger than those provided in this report. 11:26 AM EST [facility] Consult (Colon) 05/19/2025 12:04 PM EST Consult (Colon) 05/23/2025 5 3:04 PM EST us Chase Herron MD, PhD LAB PATHOLOGY ORDERAB LES Final Result [facility] [address] [place] [id number] documented in this encounter Visit Diagnoses Diagnosis Malignant neoplasm of colon, unspecified part of colon documented in this encounter Care Teams [employer] Relationship Specialty Start Date End Date Blas Leger MD [address] [place] [address] [place] [address] PCP - General Internal Medicine 08/12/25 [place] [address] [place] [id number] [email or web address] 08/12/25 Chase Herron MD, PhD [address] [place] [id number] [email or web address] Medical Oncology 08/12/25 documented as of this encounter Additional Source Comments The information contained in this document represents components of the legal health record. It is not the complete legal health record.[facility]
--- OUTSIDE RECORDS SUMMARY | 2025-09-02 16:46 | XMS_ITS | Clinical Summary ---
Author Organization [facility] Address [address] [place] [phone] Phone Care Team Providers Care Client Renewal Specialist Name Role Phone Blas Leger MD Primary Care Provider [phone] Hamzah Ragland MD Unavailable Chase Herron MD, PhD Unavailable Allergies No known active allergies Medications OLANZapine (ZYPREXA) 5 MG tablet Take 5 mg by mouth nightly at bedtime. Active ondansetron (ZOFRAN-ODT) 4 MG disintegrating tablet Take 8 mg by mouth every 8 (eight) hours. Active prochlorperazine (COMPAZINE) 10 MG tablet Take 10 mg by mouth every 6 (six) hours as needed. Active loperamide (IMODIUM A-D) 2 mg tablet Take 2-4 mg by mouth 4 (four) times a day as needed for diarrhea. Active cholestyramine (QUESTRAN) 4 gram powder Take 4 g by mouth 2 (two) times a day with meals. Active hydrocortisone 2.5 % cream Apply 1 Application topically 2 (two) times a day. Active encorafenib (BRAFTOVI) 75 mg capsule Take 300 mg by mouth daily. Active lidocaine-priloca ine (EMLA) cream Apply 1 Application topically as needed. Active clindamycin (CLEOCIN T) 1 % gel Apply 1 Application topically 2 (two) times a day. Active dexAMETHasone (DECADRON) 4 MG tablet Take 4 mg by mouth as directed. Active colestipol (COLESTID) 1 gram tablet Take 2 g by mouth 2 (two) times a day. 2024 Discontinued Active Problems Problem Noted Date Diagnosed Date Malignant neoplasm of hepatic flexure 08/20/2025 Cancer Staging:Pathologic stage from 05/23/2025:Stage JAZMINE(pT3, pN2a, cM1a) - Signed by Chase Herron MD, PhD on 08/20/2025 Encounters Date Type Department Care Team Description 08/25/2025 Orders Only [facility], [address], [address] [place] [phone] Chase Herron MD, PhD Malignant neoplasm of colon, unspecified part of colon 08/21/2025 4:00 PM EST Office Visit [facility], [address], [address] [place] [phone] Chase Herron MD, PhD Natalie Potter Malignant neoplasm of hepatic flexure (Primary Dx) 08/21/2025 Documentation [facility], [address], [address] [place] [phone] Yesi Wong 08/19/2025 Ancillary Orders DF IMG OUTSIDE IMG [address] [place] [phone] Chase Herron MD, PhD 08/19/2025 Ancillary Orders DF IMG OUTSIDE IMG [address] [place] [address] [phone] Chase Herron MD, PhD 08/19/2025 Ancillary Orders DF IMG OUTSIDE IMG [address] [place] [address] [phone] Chase Herron MD, PhD 08/19/2025 Ancillary Orders DF IMG OUTSIDE IMG [address] [place] [address] [phone] Chase Herron MD, PhD 08/19/2025 Ancillary Orders DF IMG OUTSIDE IMG [address] [place] [address] [phone] Chase Herron MD, PhD 08/19/2025 Ancillary Orders DF IMG OUTSIDE IMG [address] [place] [address] [phone] Chase Herron MD, PhD 08/19/2025 Ancillary Orders DF IMG OUTSIDE IMG [address] [place] [address] [phone] Chase Herron MD, PhD 08/19/2025 Ancillary Orders DF IMG OUTSIDE IMG [address] [place] [address] [phone] Chase Herron MD, PhD 08/19/2025 Ancillary Orders DF IMG OUTSIDE IMG [address] [place] [address] [phone] Chase Herron MD, PhD 08/19/2025 Ancillary Orders DF IMG OUTSIDE IMG [address] [place] [address] 11691 Chase Herron MD, PhD 08/19/2025 Ancillary Orders DF IMG OUTSIDE IMG [address] [place] [address] [phone] Chase Herron MD, PhD 08/19/2025 Ancillary Orders DF IMG OUTSIDE IMG [address] [place] [address] [phone] Chase Herron MD, PhD 08/19/2025 Ancillary Orders DF IMG OUTSIDE IMG [address] [place] [address] [phone] Chase Herron MD, PhD 08/19/2025 Ancillary Orders DF IMG OUTSIDE IMG [address] [place] [address] [phone] Chase Herron MD, PhD 08/19/2025 Ancillary Orders DF IMG OUTSIDE IMG [address] [place] [address] [phone] Chase Herron MD, PhD 08/12/2025 Orders Only [facility], [facility] [address] [place] [address], [address] [place] [address] Chase Herron MD, PhD Malignant neoplasm of colon, unspecified part of colon (Primary Dx) 07/12/2025 Ancillary Procedure DF IMG OUTSIDE IMG [address] [place] [address] Chase Herron MD, PhD 07/08/2025 12:05 AM EDT Ancillary Procedure DF IMG OUTSIDE IMG [address] [place] [address] 150[address] Chase Herron MD, PhD 07/08/2025 Ancillary Procedure DF IMG OUTSIDE IMG [address] [place] [address] [phone] Chase Herron MD, PhD 06/19/2025 12:05 AM EDT Ancillary Procedure DF IMG OUTSIDE IMG [address] [place] [address] [phone] Chase Herron MD, PhD 06/19/2025 Ancillary Procedure DF IMG OUTSIDE IMG [address] [place] [address] [phone] Chase Herron MD, PhD 06/18/2025 Ancillary Procedure DF IMG OUTSIDE IMG [address] [place] [address] [phone] Chase Herron MD, PhD from Last 3 Months Family History Medical History Relation Comments Stomach cancer Father Breast cancer Maternal Aunt Oral cancer Paternal Grandmother Relation Status Comments Father Maternal Aunt Alive Maternal Grandfather Alive Maternal Grandmother Alive Maternal Uncle Alive Mother Alive Paternal Grandfather Paternal Grandmother Paternal Uncle Alive Social History Tobacco Use Types Packs/Day Years [...] high school, GED, job training, learning the [place] language, technical skills, or developing parenting skills)? [...] Orientation Straight 08/12/2025 10 :31 AM EST Last Filed Vital Signs Vital Sign Reading Time Taken Comments Blood Pressure 98/62 08/21/2025 3:00 PM EST Pulse 104 08/21/2025 3:00 PM EST Temperature 36.7 C (98 F) 08/21/2025 3:00 PM EST Respiratory Rate 18 08/21/2025 3:00 PM EST Oxygen Saturation 99% 08/21/2025 3:00 PM EST Inhaled Oxygen Concentration - - Weight 49.6 kg (109 lb 5.6 oz) 08/21/2025 3:00 P M EST Height 158.3 cm (5' 2.32 ) 08/21/2025 3:00 PM ES T Body Mass Index 19.79 08/21/2025 3:00 PM EST Plan of Treatment Health Maintenance Due Date Last Done Comments Adult Td,Tdap Booster 1990 DEPRESSION SCREENING 2002 HEPATITIS C SCREENING 2008 HIV ONE-TIME SCREENING (18-6 5 YEARS) 2008 PAP SMEAR 2011 COVID-19 VACCINE (2024-2 6 season) 2025 INFLUENZA VACCINE Completed 06/27/2025 PNEUMOCOCCAL VACCINES (0-49 years) Completed 2024 SMOKING STATUS SCREENING (On ce After 26 Yrs) Completed 08/21/2025 HEPATITIS A VACCINES Aged Out No long er eligible based on patient's age to complete this topic HIB VACCINES Aged Out No longer eligi ble based on patient's age to complete this topic MENINGOCOCCAL VACCINES (ACWY) Aged Out No longer eligible based on patient's age to complete this topic MENINGOCOCCAL VACCINES (B) Aged Out N o longer eligible based on patient's age to complete this topic Medical Devices Not on file Procedures Procedure Name Priority Date/Time Associated Diagnosis Comments OUTSIDE LAB 08/27/2025 OUTSIDE PATHOLOGY REVIEW/CONSULT Routine 08/25/2025 12:03 PM EST Malignant neoplasm of colon, unspecified part of colon OUTSIDE LAB 08/13/2025 OUTSIDE LAB 08/13/2025 OUTSIDE LAB 07/13/2025 OUTSIDE LAB 07/13/2025 US ABDOMEN OUTSIDE (NO INTERPRETATION) Routine 07/12/2025 12:00 AM EDT OUTSIDE IMAGING 07/12/2025 XR CHEST OUTSIDE (NO INTERPRETATION) Routine 07/08/2025 12:[address] ABDOMEN/PELVIS OUTSIDE (NO INTERPRETATION) Routine 07/08/2025 12:00 AM EDT OUTSIDE IMAGING 07/08/2025 OUTSIDE IMAGING 07/08/2025 OUTSIDE IMAGING 07/08/2025 FL THORACIC OUTSIDE (NO INTERPRETATION) Routine 06/19/2025 12:05 AM EDT US VASCULAR OUTSIDE (NO INTERPRETATION) Routine 06/19/2025 12:00 AM EDT OUTSIDE LAB 06/19/2025 OUTSIDE IMAGING 06/19/2025 OUTSIDE PROCEDURE 06/19/2025 CT CHEST OUTSIDE (NO INTERPRETATION) Routine 06/18/2025 12:00 AM EDT OUTSIDE IMAGING 06/18/2025 OUTSIDE PATHOLOGY 06/12/2025 from Last 3 Months Results * Outside Lab (Non-[facility]) (08/27/2025) Only the most recent of6 resultswithin the time period is included. us Scanning Interface Provider LAB BLOOD BKR ORDERA BLES Final Result * Outside Pathology Review/Consult (08/25/2025 12:03 PM EST) Consult Auto Resulting Yes 08/25/2025 12:07 PM EST [facility] Consult 08/25/2025 12:0 3 PM EST 08/25/2025 12:04 PM EST us Chase Herron MD, PhD LAB PATHOLOGY ORDERAB LES Final Result Performing Organization Address [facility]/ZIP Co de Phone Number [facility] [address] [place] [address] * Outside Imaging Report Only (07/12/2025) us Scanning Interface Provider IMG XR CHEST Fatoumata l Result * US Abdomen Outside (No Interpretation) (07/12/2025 12:00 AM EDT) Narrative CLAUDIA - 08/19/2025 7:55 AM EST This study is for PACS storage only and not for interpretation. us Chase Herron MD, PhD IMG OUTSIDE IMAGING W /OUT INTERPRETATION Final Result Performing Organization Address City/[facility]/ZIP Co de Phone Number [email or web address] * XR Chest Outside (No Interpretation) (07/08/2025 12:05 AM EDT) Narrative TRACIBW - 08/19/2025 7:57 AM EST This study is for PACS storage only and not for interpretation. us Chase Herron MD, PhD IMG OUTSIDE IMAGING W /OUT INTERPRETATION Final Result Performing Organization Address [facility] Phone Number [email or web address] * Outside Imaging Report Only (07/08/2025) us Scanning Interface Provider IMG XR CHEST Fatoumata l Result * Outside Imaging Report Only (07/08/2025) us Scanning Interface Provider IMG XR CHEST Fatoumata l Result * Outside Imaging Report Only (07/08/2025) us Scanning Interface Provider IMG XR CHEST Fatoumata l Result * CT Abdomen/Pelvis Outside (No Interpretation) (07/08/2025 12:00 AM EDT) Narrative SEEMA_DFCI - 08/19/2025 7:56 AM EST This study is for PACS storage only and not for interpretation. us Chase Herron MD, PhD IMG OUTSIDE IMAGING W /OUT INTERPRETATION Final Result Performing Organization Address [facility] Phone Number [email or web address] * FL Thoracic Outside (No Interpretation) (06/19/2025 12:05 AM EDT) Narrative ADALBERTOIO_BW - 08/19/2025 8:02 AM EST This study is for PACS storage only and not for interpretation. us Chase Herron MD, PhD IMG OUTSIDE IMAGING W /OUT INTERPRETATION Final Result Performing Organization Address [facility] de Phone Number [email or web address] * Outside Imaging Report Only (06/19/2025) us Scanning Interface Provider IMG XR CHEST Fatoumata l Result * Outside Procedure (06/19/2025) us Scanning Interface Provider PROCEDURE/MINOR SURG ICAL PERFORMABLES Final Result * US Vascular Outside (No Interpretation) (06/19/2025 12:00 AM EDT) Narrative SYSTEMGENERATED, DOCUMENTATION - 08/19/2025 7:58 AM EST This study is for PACS storage only and not for interpretation. us Chase Herron MD, PhD CV US VASCULAR Final Result * Outside Imaging Report Only (06/18/2025) us Scanning Interface Provider IMG XR CHEST Fatoumata l Result * CT Chest Outside (No Interpretation) (06/18/2025 12:00 AM EDT) Narrative CASEY - 08/19/2025 8:02 AM EST This study is for PACS storage only and not for interpretation. us Chase Herron MD, PhD IMG OUTSIDE IMAGING W /OUT INTERPRETATION Final Result PERCIPIO[facility] * Outside Pathology (06/12/2025) us Scanning Interface Provider PATHOLOGY ORDERABLES Final Result from Last 3 Months [facility] O POS EPO IM O POS EPO IM O POS EPO O POS EPO [address] [place], [place] [address]O POS EPO Care Teams Client Renewal Specialist Relationship Specialty Start Date End Date Blas Leger MD [address] [place] [address] [place] [address] PCP - General Internal Medicine 08/12/25 Hamzah Ragland MD [address] [place] [phone] [email or web address] 08/12/25 Chase Herron MD, PhD [address] [place] [phone] (work) [email or web address] 08/12/25 Additional Source Comments The information contained in this document represents components of the legal health record. It is not the complete legal health record.[facility]
== END 2025-09-02 16:39 | disposition home or self-care (01) ==
LOC: HO.HMCH 15:44
PROVIDERS: PCP Internal Medicine; Visit Provider Internal Medicine
DX: C18.9 Malignant neoplasm of colon, unspecified (principal); E78.00 Pure hypercholesterolemia, unspecified; E55.9 Vitamin D deficiency, unspecified; N71.1 Chronic inflammatory disease of uterus; E22.1 Hyperprolactinemia

== ENCOUNTER → 2025-09-02 15:44 | Outpatient (BNVA) | payer OTHER, SELFPAY | PROVIDERS: PCP Internal Medicine; Visit Provider Internal Medicine | DX: Z13.31 Encounter for screening for depression (principal); Z13.39 Encounter for screening examination for other mental health and behavioral disorders | CPT/HCPCS: 96127 ==